=== PATIENT | male | born 1960 | race Caucasian/White ===

== ENCOUNTER 2017-03-04 11:44 | Emergency (ER) | payer OTHER ==
[~2017-03-04] VITALS: Wt 77.0 kg
[2017-03-04] MEDS ORDERED: ACET500C5 PO (13:23)
[2017-03-04] MEDS ORDERED: PRED20TA PO (13:23)
[2017-03-04] MEDS ORDERED: IBUPROFEN 600 MG TAB PO ONE (13:30)
[2017-03-04] MEDS ORDERED: DEXAMETHASONE 10 MG/ML 1 ML INJ IM ONE (13:30)
--- NOTE | 2017-03-04 14:31 | ERD ---
ER Documentation Chief Complaint Date/Time DATE: 03/04/17 TIME: 14:27 Chief Complaint MULTIPLE JOINT PAIN NON TRAUMATIC, CHRONIC PAIN . NO SWELLING OR DEFORMITY HPI 56-year-old male with a history of rheumatoid arthritis presenting with acute joint pain in multiple joints. He was on a DMARD and prednisone daily prescribed by a layout mechanic. He went to prison for 90 days, where he continued his treatment. After he was discharged, he had no treatment. He has a new doctor with which he made an appointment today. He denies any associated fevers or chills. He complains of stiffness in all of his joints with aching pain, 9 out of 10. He denies any recent trauma. ROS All systems reviewed and are negative except as per history of present illness. Medications Home Meds Active Scripts Acetaminophen* (Tylophen*) 500 Mg Capsule, 2 CAP PO Q8H Y for PAIN AND OR ELEVATED TEMP, #20 CAP Prov:MARYAM SALVADOR MD 03/04/17 Prednisone* (Prednisone*) 20 Mg Tab, 10 MG PO DAILY for 10 Days, TAB Prov:MARYAM SALVADOR MD 03/04/17 PMhx/Soc Hx Miscellaneous Medical Probl: Yes (Rheumatoid arthritis) Hx Alcohol Use: Yes Hx Substance Use: Yes Hx Tobacco Use: Yes Smoking Status: Current every day smoker FmHx Family History: No diabetes Physical Exam Vitals Vital Signs Date Time Temp Pulse Resp B/P Pulse Ox O2 Delivery O2 Flow Rate FiO2 03/04/17 11:48 98.8 102 21 122/67 98 Physical Exam Const: Unkempt, no apparent distress, sleeping comfortably in bed Head: Atraumatic Eyes: Normal Conjunctiva ENT: Normal External Ears, Nose and Mouth. Neck: Full range of motion. No meningismus. Resp: Clear to auscultation bilaterally Cardio: Regular rate and rhythm, no murmurs Abd: Soft, non tender, non distended. Normal bowel sounds Skin: No petechiae or rashes Back: No midline or flank tenderness Ext: No cyanosis, or edema. Multiple large joints with minimal swelling and tenderness. Limited range of motion secondary to pain. There is no overlying erythema of the joints. Neur: Awake and alert Psych: Normal Mood and Affect Results 24 hrs Current Medications Medications (Trade) Dose Ordered Sig/Cesilia Route PRN Reason Start Time Stop Time Status Last Admin Dose Admin Ibuprofen (Motrin) 600 mg ONCE ONCE PO 03/04/17 13:30 03/04/17 13:31 DC Dexamethasone (Decadron) 10 mg ONCE ONCE IM 03/04/17 13:30 03/04/17 13:31 DC Procedures/MDM Patient given dose of Decadron IM and ibuprofen orally. He likely has acute exacerbation of his chronic rheumatoid arthritis. I do not suspect septic joint. He is hemodynamically stable and afebrile. I will start the patient on prednisone for 10 days. I advised he keep his follow-up with his primary care doctor to be started on chronic medications to control his symptoms. Patient is agreeable with the plan. Return precautions were discussed. Departure Diagnosis: Primary Impression: Rheumatoid arthritis flare Condition: Stable Patient Instructions: Rheumatoid Arthritis Referrals: [facility] YOU HAVE RECEIVED A MEDICAL SCREENING EXAM AND THE RESULTS INDICATE THAT YOU DO NOT HAVE A CONDITION THAT REQUIRES URGENT TREATMENT IN THE EMERGENCY DEPARTMENT. FURTHER EVALUATION AND TREATMENT OF YOUR CONDITION CAN WAIT UNTIL YOU ARE SEEN IN YOUR DOCTORS OFFICE WITHIN THE NEXT 1-2 DAYS. IT IS YOUR RESPONSIBILITY TO MAKE AN APPOINTMENT FOR [facility]. IF YOU HAVE A PRIMARY DOCTOR --you should call your primary doctor and schedule an appointment IF YOU DO NOT HAVE A PRIMARY DOCTOR YOU CAN CALL OUR PHYSICIAN REFERRAL HOTLINE AT IF YOU CAN NOT AFFORD TO SEE A PHYSICIAN YOU CAN CHOSE FROM THE FOLLOWING [facility] [address] [facility]. [facility] [facility] [address] [facility] [facility] [address] [facility] [facility] [address] [facility] [address] [facility]. [facility]. [address] Additional Instructions: Follow-up with your primary care doctor as scheduled. You will need a referral to a layout mechanic to start chronic daily medications. MARYAM SALVADOR MD Mar 04, 2017 14:30
== END 2017-03-04 14:38 | disposition home or self-care (01) ==
LOC: E/R 11:44
DX: M06.89 Other specified rheumatoid arthritis, multiple sites (principal); R40.2252 Coma scale, best verbal response, oriented, at arrival to emergency department; F17.210 Nicotine dependence, cigarettes, uncomplicated; R40.2142 Coma scale, eyes open, spontaneous, at arrival to emergency department; R40.2362 Coma scale, best motor response, obeys commands, at arrival to emergency department
CPT/HCPCS: 96372; J1100; Z7502; Z7610